=== PATIENT | female | born 1970 | race Caucasian/White ===

== ENCOUNTER 2017-08-26 16:13 | Emergency (ER) | payer BC, SELFPAY ==
[2017-08-26 16:15] VITALS: BP 119/72; PULSE 86; RESP 18; TEMP 36.2; O2SAT 96; BMI 24.7
--- NOTE | 2017-08-26 16:24 | RAD_ITS ---
STUDY: X-RAY - LUMBAR SPINE REASON FOR EXAM: Female, 46 years old. Back pain radiating down right leg TECHNIQUE: 4 view(s) of the lumbar spine were obtained. COMPARISON: None FINDINGS: Normal lumbar lordosis. There is no substantial scoliosis. There is a normal alignment of the vertebrae. Normal vertebral bodies and endplates. Normal disc space heights. The soft tissue structures are unremarkable. RAD/Lumbar Spine 2 or 3 Views IMPRESSION: Normal x-ray examination of the lumbar spine. Electronically Signed: Oscar Jerome MD at 17:50 EST , Service support ,
--- NOTE | 2017-08-26 16:28 | ED.DCSUM_ITS ---
- ER Visit Summary Date of Service: 08/26/17 Chief Complaint: [] Back pain for a week after colonoscopy History of Present Illness: The patient is a 46 F [] ports that last Wednesday she had a screening colonoscopy that was unremarkable no complications no problems she went there feeling fine when she woke from procedure she had back pain the back pain is persisted it is localized to the lumbar spine in area that has previously caused back pain related to a fall about 4 or 5 years ago she has no history of back elements fracture lumbar disc disease. She denies abdominal pain fever she is eating drinking without difficulty, her bowel bladder habits are normal she indicates the pain sometimes radiates and shoots down her right leg but for the most part is localized and stays in the lumbar back Physical Examination: [] Points directly to the low lumbar back complaining of pain head neck chest unremarkable the abdomen soft nontender there is a very mild pain to the lumbar back there is also pain to the right and left paralumbar musculature she denies any bowel bladder complaints denies any perineal anesthesia. She is able to stand and walk without difficulty she can heel raise toe raise knee bend and walk without trouble there is no neurologic abnormalities, there is no signs of cauda equina there is no signs of any complications related to colonoscopy as she has no abdominal pain bowel bladder habits are normal she is eating without difficulty She reports she has had this type of pain before related to a fall for 5 years ago the pain she is expressing now is identical to what she experienced on Test Results: [] Emergency Department Course and Treatment: [] spine x-rays morphine spine x-ray showed nothing acute, she was medicated with 8 mg of morphine subcu almost immediately and it what she describes as a red dot and then she felt she was having chest pressure secondary to the morphine. We examined the patient her vital signs were normal she is placed on a athletic monitor normal her lungs were clear heart tones were normal EKG was done that was unremarkable and her symptoms generally improved to resolved, she continues have some mild back pain. I explained her that given her reaction to the morphine we will not use any narcotics to manage her pain she will start on a nonsteroidal Flexeril and she will follow with her family doctors in the next few days for further management and evaluation he was given IM Toradol here Treatment Plan: [] Disposition: [] Stable Impression: [] paper machine back tender pain after colonoscopy, history of lumbar back pain, reaction to morphine resolved This note was generated with [employer] dictation software. It may contain incorrect words, spelling, and punctuation that were not noted in review of the chart prior to signing ED Disposition - Plan for ED Patient: Chief Complaint: Other, Pain/Inj Referrals: Tony Otoole [Primary Care Provider] -
[2017-08-26] MEDS: Ondansetron ODT 4 MG Tablet PO (16:30)
--- NOTE | 2017-08-26 17:22 | ED.RN ---
pt with reddened area of morphine injection and reports sob. this rn encouraged pt in deep breathing and applied 2 l nc. pt o2 is 97 on ra and 99% on 2l nc. pt now relaxing. laying back in bed taking deep breaths. reports medication did not help with her back pain.
--- NOTE | 2017-08-26 17:30 | ED.RN ---
pt now reporting chest pain. this rn applied pt to monitor.called for ekg. dr. buck informed.
--- NOTE | 2017-08-26 17:34 | EKG12_ITS ---
Test Reason : CHEST PAIN Blood Pressure : / mmHG Vent. Rate : 077 BPM Atrial Rate : 077 BPM P-R Int : 170 ms QRS Dur : 090 ms QT Int : 412 ms P-R-T Axes : 063 043 045 degrees QTc Int : 466 ms Normal sinus rhythm Normal ECG Confirmed by CHARLES DOWLING ([id number]), editorial manager TATUM DORSEY ([id number]) on 08/30/2017 1:52:04 PM Referred By: CYNTHIA Confirmed By:CHARLES DOWLING
--- NOTE | 2017-08-26 17:34 | ED.RN ---
DR. CAMP INFORMED OF PT C/O CHEST PAIN. RESPIRATORY AT BEDSIDE TO DO EKG. PT SITTING UP ON SIDE OF BED. PT INFORMED NOT TO GET OUT OF BED.
[2017-08-26 17:53] VITALS: BP 154/105; PULSE 78; RESP 26; O2SAT 99
--- NOTE | 2017-08-26 17:57 | ED.RN ---
Pt informed that Dr Medranoyed aware fo c/o of chest discomfort. EKG had been repeated since onset. I encourgaed pt to decrease breathing to prevent hyperventilation then placed a NRB mask on pt unattached to O2. She then requested to use bathroom. Ambulated with steady gaot and minimal assist by her daughter. I escorted pt without assist to bathroom,.
--- NOTE | 2017-08-26 18:32 | ED.DEP ---
ED Disposition - Plan for ED Patient: Chief Complaint: Other, Pain/Inj Instructions: ED Low Back Pain Injury Prescriptions: Naproxen [Naprosyn] 500 mg PO BID PRN #20 tab Cyclobenzaprine [Flexeril] 10 mg PO BID #10 tab Referrals: Tony Otoole [Primary Care Provider] -
[2017-08-26 18:50] VITALS: BP 127/88; PULSE 84; RESP 18; O2SAT 98
--- NOTE | 2017-08-26 18:50 | ED.RN ---
REVIEWED D/C INSTRUCTIONS, FOLLOW UP CARE, PRESCRIPTIONS, AND S/S THAT WOULD WARRANT A RETURN TO THE ED WITH PT. PT VERBALIZED AN UNDERSTANDING AND DENIES FURTHER QUESTIONS FOR THIS RN. PT SKIN P/W/D, RESP EVEN AND UNLABORED, PT A&O X 3, NO DISTRESS NOTED. PT AMBULATED OUT OF ED, GAIT STEADY.
== END 2017-08-26 18:52 | disposition home or self-care (01) ==
PROVIDERS: Emergency Provider Emergency Medicine; Family Provider Family Medicine; PCP Family Medicine
DX: M54.5 Low back pain (principal); R07.9 Chest pain, unspecified; T40.2X5A Adverse effect of other opioids, initial encounter; Y92.538 Other ambulatory health services establishments as the place of occurrence of the external cause
CPT/HCPCS: 72100; 93005; 96372; 99282

== ENCOUNTER → 2019-11-07 12:13 | Outpatient (CLI) | payer BC, SELFPAY | PROVIDERS: PCP Family Medicine; Referring Provider Family Medicine; Visit Provider Family Medicine | DX: Z03.818 Encounter for observation for suspected exposure to other biological agents ruled out (principal) | CPT/HCPCS: 87635; G2023; U0004 ==

== ENCOUNTER → 2021-10-27 | Outpatient (CLI) | payer OTHER, SELFPAY ==
[2021-10-28 08:25] LABS: Hepatitis C Antibody Non-Reactive (Nonreactive)
== END | disposition home or self-care (01) ==
LOC: POLAB3 16:14
PROVIDERS: PCP Family Medicine Geriatric Medicine; Visit Provider Family Medicine Geriatric Medicine
DX: Z13.89 Encounter for screening for other disorder (principal)
CPT/HCPCS: 36415; 86803

== ENCOUNTER → 2024-07-13 | Outpatient (CLI) | payer BC, SELFPAY ==
--- NOTE | 2024-07-13 08:15 | RAD_ITS ---
STUDY: X-RAY - ESOPHAGUS (BARIUM SWALLOW) WITH FLUOROSCOPY REASON FOR EXAM: Female, 53 years old. DYSPHAGIA. Hoarseness. TECHNIQUE: 42 fluoroscopic view(s) of the esophagus were obtained following swallowing of barium. FLUOROSCOPY TIME (if supplied): (46 seconds) minutes/seconds. 6.7 mGy. COMPARISON: None. FINDINGS: There is no demonstrated esophageal foreign body. There is no demonstrated stricture or mucosal abnormality. Normal gastroesophageal junction, without a demonstrated hiatal hernia. The patient ingested a 12 mm tablet of barium without any difficulty. Normal visualized aortic arch and descending thoracic aorta. Normal visualized pulmonary parenchyma. Normal visualized osseous structures of the thorax. RAD/Esophagus Dual Contrast IMPRESSION: Normal plain film x-ray examination (barium swallow) of the esophagus. Electronically Signed: Wilfred Franz MD at 10:07 [facility] ,
== END | disposition home or self-care (01) ==
LOC: RAD 08:09
PROVIDERS: PCP Internal Medicine; Referring Provider Otolaryngology; Visit Provider Otolaryngology
DX: R49.0 Dysphonia (principal)
CPT/HCPCS: 74221